=== PATIENT | female | born 1955 | race Caucasian/White ===

== ENCOUNTER 2017-08-28 23:08 | Inpatient (IN) ==
[2017-08-28] MEDS ORDERED: Ipratropium/Albuterol Neb 3 ML IH ONE (23:11)
[2017-08-28] MEDS ORDERED: methylPREDNISolone 125 MG/2 ML VIAL IVP ONE (23:11)
--- NOTE | 2017-08-28 23:18 | Emergency Department Note ---
Disposition Clinical Impression: NSTEMI (non-ST elevated myocardial infarction), Leukocytosis Community acquired pneumonia Qualifiers: Laterality: unspecified laterality Qualified Code(s): J18.9 - Pneumonia, unspecified organism Proteinuria Qualifiers: Proteinuria type: unspecified Qualified Code(s): R80.9 - Proteinuria, unspecified Disposition: Admitted As Inpatient Condition: Fair Time of Disposition: 02:48 SOB HPI - General Stated Complaint: stemi Chris Time Seen by Provider: 08/28/17 23:11 Source: patient, EMS Mode of arrival: EMS Limitations: no limitations Nursing Notes Reviewed: Yes Vital Signs Reviewed: Yes - History of Present Illness Patient presents to the ED via EMS and was seen and evaluated immediately upon arrival for shortness of breath. Patient states that over the last 3 days. She has had gradually increasing dyspnea. She had subjective fever and chills, cough and congestion. She had some chest pain yesterday but none today. States that she just feels very rundown and tired. She denies any history of COPD, but does state that she continues to smoke. No history of stents or bypasses. She has had a stroke about 10 years ago that left her with some right lower extremity weakness but no new weakness. No history of DVT or PE. - Related Data Allergies Allergy/AdvReac Type Severity Reaction Status Date / Time No Known Allergies Allergy Verified 08/28/17 23:09 Review of Systems: As reviewed in the HPI. All other systems reviewed are negative or normal. Past Medical History - Past Medical History Attestation: Yes The following information was validated with the patient. Source: patient Physical Exam CONSTITUTIONAL: [well appearing in no acute distress] SKIN: [Warm, dry, and intact without rash] EYES: [extraocular movements are grossly intact, clear conjunctiva] HENT: [Normocephalic, atraumatic, moist mucus membranes] NECK: [no obvious swelling, normal range of motion] PULMONARY: [normal chest rise and fall, mild respiratory distress with moderate diffuse wheezing throughout CARDIOVASCULAR: [Tachycardic, distal extremities are warm and well perfused] GASTROINSTESTINAL: [nondistended, non-tender] GENITOURINARY: [deferred] NEUROLOGIC: [normal speech, moves all extremities] MUSCULOSKELETAL: [no gross deformities, atraumatic] PSYCHIATRIC: [normal mood and affect] Course Course Narrative: Patient presenting with shortness of breath and likely COPD exacerbation. She is wheezing throughout. Will give nebs. Patient did get aspirin prior to arrival. - Reevaluation(s) Reevaluation #1: Patient's EKG does not meet STEMI criteria, but is certainly concerning. Her story really is not fitting. Concern that this could be ACS. Due to her age, but also will need to consider PE due to her significant of shortness of breath. Her chest x-ray did show a possible lung nodule versus mass, so we will go ahead and CT her chest to rule out PE and further evaluate this. This could also be a potential pneumonia. Reevaluation #2: CTA did not show a PE. It did show concern over pneumonia. Her initial troponin was elevated, and we rechecked it 3 hours later and it has almost doubled. Do think that she most likely is having an NSTEMI , and we will start on heparin. We will also treat her for pneumonia. Patient will be admitted to the hospital. - Consultations Consultation #1: Patient admitted to hospital service under Dr. Almanzar and he was agreeable with heparin gtt. Time: 02:46 Vital Signs Temperature 97.1 F L 08/28/17 23:09 Pulse Rate 120 08/28/17 23:09 Respiratory Rate 20 08/28/17 23:09 Blood Pressure 114/93 08/28/17 23:09 O2 Sat by Pulse Oximetry 96 08/28/17 23:09 Temperature 97.1 F L 08/28/17 23:09 Pulse Rate 110 08/29/17 03:34 Respiratory Rate 20 08/29/17 03:34 Blood Pressure 154/87 08/29/17 03:34 O2 Sat by Pulse Oximetry 93 08/29/17 03:34 Oxygen Delivery Oxygen Delivery Nasal Cannula Shortness of Breath/Dyspnea - Medical Records Medical records reviewed: Yes I reviewed the patient's medical records. - Lab Data Lab results reviewed: Yes I reviewed the patient's lab results. Result diagrams: 08/28/17 23:19 08/28/17 23:19 Lab Results 08/28/17 08/28/17 08/28/17 Range/Units 23:19 23:19 23:19 WBC 14.9 H (4.3-11.1) K/mcL RBC 4.87 (3.82-4.97) M/mcL Hgb 15.2 (11.5-15.4) g/dL Hct 44.9 (35.3-44.9) % MCV 92.2 (83.0-100.0) fL MCH 31.2 (28.0-33.3) pg MCHC 33.9 (31.6-35.5) g/dL RDW 12.9 (11.5-14.5) % Plt Count 242 (140-400) K/mcL MPV 10.4 (9.4-12.4) fL Immature Gran % 0.3 (0-4) % Seg Neutrophils % 78.7 % Lymphocytes % 13.5 % Monocytes % 7.1 % Eosinophils % 0.1 % Basophils % 0.3 % Neutrophils # 11.7 H (1.6-8.9) K/mcL Lymphocytes # 2.0 (0.6-4.6) K/mcL Monocytes # 1.1 (0.0-1.3) K/mcL Eosinophils # 0.0 (0.0-0.6) K/mcL Basophils # 0.1 (0.0-0.2) K/mcL PT (9.4-12.1) Seconds INR APTT (26.0-36.0) Seconds Sodium 131 L (136-145) mEq/L Potassium 4.3 (3.5-5.1) mEq/L Chloride 98 (98-107) mEq/L Carbon Dioxide 22 L (23-29) mEq/L BUN 9 (8-23) mg/dL Creatinine 0.74 (0.60-1.20) mg/dL Est GFR ( Amer) > 60 (> 60) Est GFR (Non-Af Amer) > 60 (> 60) BUN/Creatinine Ratio 12 (6-26) Glucose 137 H (70-105) mg/dL Calculated Osmolality 273 L (280-300) Lactic Acid 1.1 (0.5-2.2) mmol/L Calcium 9.7 (8.6-10.3) mg/dL Troponin I 0.24 H* (< 0.04) ng/mL B-Natriuretic Peptide (Less than 100) pg/mL Urine Color (Yellow) Urine Clarity (Clear) Urine pH (5.0-8.0) pH Units Ur Specific [place] (1.010-1.025) Urine Protein (Neg-Trace) mg/dL Urine Glucose (UA) (Normal) mg/dL Urine Ketones (Negative) mg/dL Urine Blood (Negative) Urine Nitrite (Negative) Urine Bilirubin (Negative) Urine Urobilinogen (Normal) mg/dL Ur Leukocyte Esterase (Negative) Urine Microscopic RBC (0-3) per hpf Urine Microscopic WBC (0-3) per hpf Ur Squamous Epith Cells (None-Few) per lpf Urine Bacteria (None-Few) per hpf Hyaline Casts (None-Few) per lpf Ur Culture Indicated? (NO) 08/28/17 08/28/17 08/29/17 Range/Units 23:19 23:19 00:18 WBC (4.3-11.1) K/mcL RBC (3.82-4.97) M/mcL Hgb (11.5-15.4) g/dL Hct (35.3-44.9) % MCV (83.0-100.0) fL MCH (28.0-33.3) pg MCHC (31.6-35.5) g/dL RDW (11.5-14.5) % Plt Count (140-400) K/mcL MPV (9.4-12.4) fL Immature Gran % (0-4) % Seg Neutrophils % % Lymphocytes % % Monocytes % % Eosinophils % % Basophils % % Neutrophils # (1.6-8.9) K/mcL Lymphocytes # (0.6-4.6) K/mcL Monocytes # (0.0-1.3) K/mcL Eosinophils # (0.0-0.6) K/mcL Basophils # (0.0-0.2) K/mcL PT 11.4 (9.4-12.1) Seconds INR 1.1 APTT 33.8 (26.0-36.0) Seconds Sodium (136-145) mEq/L Potassium (3.5-5.1) mEq/L Chloride (98-107) mEq/L Carbon Dioxide (23-29) mEq/L BUN (8-23) mg/dL Creatinine (0.60-1.20) mg/dL Est GFR ( Amer) (> 60) Est GFR (Non-Af Amer) (> 60) BUN/Creatinine Ratio (6-26) Glucose (70-105) mg/dL Calculated Osmolality (280-300) Lactic Acid (0.5-2.2) mmol/L Calcium (8.6-10.3) mg/dL Troponin I (< 0.04) ng/mL B-Natriuretic Peptide 110 H (Less than 100) pg/mL Urine Color Dark Yellow (Yellow) Urine Clarity Clear (Clear) Urine pH 6.0 (5.0-8.0) pH Units Ur Specific [place] 1.024 (1.010-1.025) Urine Protein >=300 H (Neg-Trace) mg/dL Urine Glucose (UA) Normal (Normal) mg/dL Urine Ketones 80 H (Negative) mg/dL Urine Blood Negative (Negative) Urine Nitrite Negative (Negative) Urine Bilirubin Small H (Negative) Urine Urobilinogen Normal (Normal) mg/dL Ur Leukocyte Esterase Negative (Negative) Urine Microscopic RBC 5-15 H (0-3) per hpf Urine Microscopic WBC 3-5 H (0-3) per hpf Ur Squamous Epith Cells Many H (None-Few) per lpf Urine Bacteria None Seen (None-Few) per hpf Hyaline Casts None Seen (None-Few) per lpf Ur Culture Indicated? NO (NO) 08/29/17 Range/Units 02:04 WBC (4.3-11.1) K/mcL RBC (3.82-4.97) M/mcL Hgb (11.5-15.4) g/dL Hct (35.3-44.9) % MCV (83.0-100.0) fL MCH (28.0-33.3) pg MCHC (31.6-35.5) g/dL RDW (11.5-14.5) % Plt Count (140-400) K/mcL MPV (9.4-12.4) fL Immature Gran % (0-4) % Seg Neutrophils % % Lymphocytes % % Monocytes % % Eosinophils % % Basophils % % Neutrophils # (1.6-8.9) K/mcL Lymphocytes # (0.6-4.6) K/mcL Monocytes # (0.0-1.3) K/mcL Eosinophils # (0.0-0.6) K/mcL Basophils # (0.0-0.2) K/mcL PT (9.4-12.1) Seconds INR APTT (26.0-36.0) Seconds Sodium (136-145) mEq/L Potassium (3.5-5.1) mEq/L Chloride (98-107) mEq/L Carbon Dioxide (23-29) mEq/L BUN (8-23) mg/dL Creatinine (0.60-1.20) mg/dL Est GFR ( Amer) (> 60) Est GFR (Non-Af Amer) (> 60) BUN/Creatinine Ratio (6-26) Glucose (70-105) mg/dL Calculated Osmolality (280-300) Lactic Acid (0.5-2.2) mmol/L Calcium (8.6-10.3) mg/dL Troponin I 0.53 H* (< 0.04) ng/mL B-Natriuretic Peptide (Less than 100) pg/mL Urine Color (Yellow) Urine Clarity (Clear) Urine pH (5.0-8.0) pH Units Ur Specific [place] (1.010-1.025) Urine Protein (Neg-Trace) mg/dL Urine Glucose (UA) (Normal) mg/dL Urine Ketones (Negative) mg/dL Urine Blood (Negative) Urine Nitrite (Negative) Urine Bilirubin (Negative) Urine Urobilinogen (Normal) mg/dL Ur Leukocyte Esterase (Negative) Urine Microscopic RBC (0-3) per hpf Urine Microscopic WBC (0-3) per hpf Ur Squamous Epith Cells (None-Few) per lpf Urine Bacteria (None-Few) per hpf Hyaline Casts (None-Few) per lpf Ur Culture Indicated? (NO) - Radiology Data Radiology results reviewed: Yes I reviewed the patient's radiology results. - EKG Data EKG attestation: Yes I reviewed and interpreted this EKG. EKG results narrative: Sinus tach, rate 119, para 139, QRS 137, QTC 427, indeterminate axis, right bundle branch block with left posterior fascicular block. Is also some concern over right heart strain with large P waves Critical Care Time Critical Care Time: Yes Total Critical Care Time: 30 Attestation: I personally spent ___30___ minutes devoted to the care of this critically ill patient. This time excludes the time for billable procedures. Attestation Statement - Attestation Attestation: I examined this patient and my medical decision-making was reviewed with the Resident Physician. I agree with the documented findings, disposition and treatment plan as described except to the extent set forth below. 62-year-old female presents to ED by EMS because of different breathing. She has had increasing wheezing over the past 24 hours but precipitously worsened tonight. Denies any associated chest pain. No diaphoresis. No nausea or vomiting. No fever. Cough has been productive of thin yellow sputum. She denies diagnosis of COPD or emphysema but does use albuterol nebulizers at home. She is currently here visiting family from out of town. No history of coronary disease. Patient is tachypneic in mild respiratory distress. Oropharynx clear mucous membranes membranes moist. Neck is supple. Trachea midline. Chest with diffuse biphasic wheezes in all lung good. Diminished breath sounds throughout. Cardiac exam tachycardic, regular. Abdomen soft, nondistended and nontender. Extremities well perfused, warm and dry. Initial EKG shows intraventricular conduction delay as well as DE depression. There is convex changes in the ST segments but this appears to be isoelectric with the TP intervals. Initial troponin was elevated 0.24. She underwent CT of her chest which was negative for any acute process. Repeat troponin was elevated to 0.5. She was started on heparin and admitted for further evaluation. Breathing improved after sequential DuoNeb treatments. The high probability of a clinically significant, sudden or life threatening deterioration of the [cardiopulmonary] system(s) required my full and direct attention, intervention and personal management. The aggregate critical care time was [35] minutes. This time is in addition to time spent performing reported procedures but includes the following: [x] Data Review and interpretation [x] Patient assessment and monitoring of vital signs [x] Documentation [x] Medication orders and management
[2017-08-28 23:54] LABS: Basophils # 0.1 K/mcL (0.0-0.2); Basophils % 0.3 %; Eosinophils % 0.1 %; Hematocrit 44.9 % (35.3-44.9); Hemoglobin 15.2 g/dL (11.5-15.4); Immature Granulocytes % 0.3 % (0-4); Lymphocytes % 13.5 %; Mean Corpuscular HGB Conc 33.9 g/dL (31.6-35.5); Mean Corpuscular Hemoglobin 31.2 pg (28.0-33.3); Mean Corpuscular Volume 92.2 fL (83.0-100.0); Mean Platelet Volume 10.4 fL (9.4-12.4); Monocytes # 1.1 K/mcL (0.0-1.3); Monocytes % 7.1 %; Neutrophils # 11.7 K/mcL (1.6-8.9); Platelet Count 242 K/mcL (140-400); Red Blood Count 4.87 M/mcL (3.82-4.97); Red Cell Distribution Width 12.9 % (11.5-14.5); Segmented Neutrophils % 78.7 %
[2017-08-29 00:14] LABS: INR 1.1; Prothrombin Time 11.4 Seconds (9.4-12.1)
[2017-08-29 00:17] LABS: Activated Partial Thrombo Time 33.8 Seconds (26.0-36.0)
[2017-08-29 00:30] LABS: BUN/Creatinine Ratio 12 (6-26); Blood Urea Nitrogen 9 mg/dL (8-23); Calcium 9.7 mg/dL (8.6-10.3); Carbon Dioxide 22 mEq/L (23-29); Chloride 98 mEq/L (98-107); Glucose 137 mg/dL (70-105); Osmolality,Calculated 273 (280-300); Potassium 4.3 mEq/L (3.5-5.1); Sodium 131 mEq/L (136-145); Troponin I 0.24 ng/mL (< 0.04); eGFR For African Americans > 60 (> 60); eGFR For Non-African Americans > 60 (> 60)
[2017-08-29 00:31] LABS: Bilirubin,Urine Small (Negative); Blood,Urine Negative (Negative); Clarity,Urine Clear (Clear); Color,Urine Dark Yellow (Yellow); Glucose,Urine (UA) Normal (Normal); Ketones,Urine 80 mg/dL (Negative); Leukocyte Esterase,Urine Negative (Negative); Nitrite,Urine Negative (Negative); Protein,Urine >=300 mg/dL (Neg-Trace); Specific Gravity,Urine 1.024 (1.010-1.025); Urobilinogen,Urine Normal (Normal)
[2017-08-29 00:34] LABS: Bacteria,Urine None Seen per hpf (None-Few); Hyaline Casts,Urine None Seen per lpf (None-Few); Squamous Epithelial Cell,Urine Many per lpf (None-Few)
[2017-08-29] MEDS ORDERED: Aspirin 325 MG TABLET PO ONE (00:36)
[2017-08-29] MEDS ORDERED: Isovue-370 500 ML INFUS..BTL IV ONE (00:49)
[2017-08-29] MEDS ORDERED: Azithromycin 500 MG in D5% in Water 250 ML IVPB ONE (02:22)
[2017-08-29] MEDS ORDERED: cefTRIAXone 1,000 MG in Water for inj. (sterile) 20 ML 10 ML IVPB ONE (02:22)
[2017-08-29] MEDS ORDERED: *HR* Heparin 5,000 UNIT/ML VIAL IVP ONE (02:41)
[2017-08-29] MEDS ORDERED: Naloxone 0.4 MG/ML INJ IVP PRN (02:50)
--- NOTE | 2017-08-29 03:11 | Internal Med History&Physical ---
Date of Encounter: 08/29/17 Time of Encounter: 03:00 Internal Medicine - H&P: HPI Chief complaint: Shortness of breath Admitted From: Emergency Dept Plans for Post Hospital Care: Home History of present illness: Ms. Marshall is a 62 year old female patient with past medical history of fibromyalgia and CVA who presented to the ER with complaints of shortness of breath. Has been going on for 2-3 days now. She is also been having cough with sputum production. No hemoptysis. No chest pain. No fever but she has been having episodes of feeling hot and cold intermittently. She reports having about of pneumonia a few years back. She is a chronic smoker. Has not been previously diagnosed with COPD. No prior history of cardiac disease. No palpitations. Past Med Surg Social Fam HX - Past Medical History Attestation: Yes The following information was validated with the patient. Source: patient Medical history: CVA, fibromyalgia Additional medical history: CVA 2007 RLE weakness Psychiatric history: depression - Past Surgical History Additional surgical history: neuro stim in and out - Social History Smoking Status: Current every day smoker Smokeless Tobacco Status: No Alcohol use: none Drug use: none - Additional Family History Additional family history: Family history of heart disease in multiple family members Internal Medicine - H&P: Meds 3 Allergy/AdvReac Type Severity Reaction Status Date / Time No Known Allergies Allergy Verified 08/28/17 23:09 All Systems PM: A 10-system review of systems was performed and is negative for pertinent findings except as documented above in the HPI. - Constitutional Constitutional: chills, malaise, no fever(s), no night sweats - EENT Eyes: no change in vision, no discharge, no pain, no photophobia Ears: no ear discharge, no ear pain, no tinnitus Nose, mouth and throat: no dysphagia, no nasal discharge, no neck pain, no sore throat - Cardiovascular Cardiovascular ROS IM: no chest pain, no diaphoresis, no dyspnea, no lightheadedness, no palpitations, no syncope - Respiratory Respiratory: cough, dyspnea, excessive phlegm production, no wheezing - Gastrointestinal Gastrointestinal: no abdominal pain, no diarrhea, no hematemesis, no hematochezia, no melena, no nausea, no vomiting - Genitourinary Genitourinary: no change in urinary stream, no dysuria, no flank pain, no hematuria - Musculoskeletal Musculoskeletal ROS IM: no numbness, no tingling - Integumentary Integumentary IM: no rash, no unusual bruising - Neurological Neurological ROS: no confusion, no convulsions, no focal weakness, no numbness, no tingling, no tremor(s) - Hematologic/Lymphatic Hematologic/Lymphatic: no easy bruising - Constitutional Vitals: Temp Pulse Resp BP Pulse Ox 97.1 F L 105 24 135/77 95 08/28/17 23:09 08/29/17 03:00 08/29/17 03:00 08/29/17 03:00 08/29/17 03:00 General appearance: Present: cooperative, A&O X 3, answers questions appropriately - Respiratory Respiratory exam: Present: prolonged expiratory phase, wheezes. Absent: accessory muscle use, rales, rhonchi - Cardiovascular Cardiovascular exam: Present: RRR, +S1, +S2. Absent: diastolic murmur, gallop, rubs, systolic murmur - GI/Abdominal GI/Abdominal exam: Present: normal bowel sounds, soft, no peritoneal signs. Absent: distended, tenderness - Extremities Exam Extremities exam: Present: warm, radial pulses palpable and symmetrical. Absent : calf tenderness, cyanotic, pedal edema - Neurological Exam Neurological exam: Present: CN II-XII intact, oriented X3, no focal deficits. Absent: pronater drift, facial droop, speech deficit - Skin Skin exam: Present: dry, intact Internal Med - H&P Results - Labs CBC & Chem 7: 08/28/17 23:19 08/28/17 23:19 Labs: Short CBC 08/28/17 Range/Units 23:19 WBC 14.9 H (4.3-11.1) K/mcL Hgb 15.2 (11.5-15.4) g/dL Hct 44.9 (35.3-44.9) % Plt Count 242 (140-400) K/mcL Neutrophils # 11.7 H (1.6-8.9) K/mcL BMP 08/28/17 23:19 Sodium 131 L Potassium 4.3 Chloride 98 Carbon Dioxide 22 L BUN 9 Creatinine 0.74 Glucose 137 H Calcium 9.7 Cardiac Enzymes 08/28/17 08/29/17 Range/Units 23:19 02:04 Troponin I 0.24 H* 0.53 H* (< 0.04) ng/mL Urine 08/29/17 Range/Units 00:18 Urine Color Dark Yellow (Yellow) Urine Clarity Clear (Clear) Urine pH 6.0 (5.0-8.0) pH Units Ur Specific [place] 1.024 (1.010-1.025) Urine Protein >=300 H (Neg-Trace) mg/dL Urine Glucose (UA) Normal (Normal) mg/dL - EKG Data EKG shows normal: sinus rhythm Rate: tachycardia - EKG Data EKG comments: 08/29/17 03:15 Right bundle-branch block - Impressions ITS Impressions Chest X-Ray 08/28/17 23:11 IMPRESSION: Increased density in the right lung apex which may be related to confluence of shadows. Comparison with prior radiographs would be helpful to confirm stability. Otherwise, CT of the chest could be performed to exclude underlying mass. D/ / Angélica Simon Cha, MD / Angélica Simon Cha, MD Interpreting Provider: Angélica Simon Cha, MD Chest CTA 08/29/17 00:49 IMPRESSION: No CT evidence pulmonary embolism. Bronchial wall thickening as well as scattered bilateral focal areas ill defined airspace opacification most compatible with infectious airways disease. 3 mm juxtapleural left upper lobe noncalcified nodule, likely postinflammatory. See below. Moderate to severe emphysema. Right apical scarring accounting for the chest radiographic abnormality. RECOMMENDATIONS: Fleischner Society guidelines for follow-up and management of incidentally detected pulmonary nodules: Single Solid Nodule: Nodule size less than 6 mm In a low-risk patient, no routine follow-up. In a high-risk patient, optional CT at 12 months. - Low risk patients include individuals with minimal or absent history of smoking and other known risk factors. - High risk patients include individuals with a history or smoking or known risk factors. Radiology 2017 http://pubs.[facility]na.org/doi/full/[email or web address] D/ / Angélica Simon Cha, MD / Angélica Simon Cha, MD Interpreting Provider: Angélica Simon Cha, MD - Assessment and plan (1) Sepsis Current Visit: Yes Status: Suspected Assessment and plan: Patient presenting with elevated WBC count and tachycardia with pneumonia. Will treat with IV antibiotics. Lactic acid is normal. Blood pressure is normal. IV fluids. Monitor vital signs. Follow blood and sputum cultures. High risk for complications Qualifiers: Sepsis type: Pneumococcus Qualified Code(s): A40.3 - Sepsis due to Streptococcus pneumoniae (2) NSTEMI (non-ST elevated myocardial infarction) Current Visit: Yes Status: Suspected Assessment and plan: Patient having elevated troponins. Although she does not have chest pain, she does have shortness of breath. We will start treatment with IV heparin for possible non-ST elevation [facility]. Consult cardiology in a.m. Monitor with telemetry. We will get 2-D echocardiogram. Keep nothing by mouth in case patient needs left heart catheterization. (3) Community acquired pneumonia Current Visit: Yes Status: Acute Assessment and plan: Bilateral airspace opacification noted on CT. Patient does have elevated WBC and increased sputum production. Will treat with pneumonia possibly due to pneumococcal pneumonia. Will treat with IV Levaquin. Follow blood and sputum cultures. Check urine streptococcus and Legionella antigens. O2 supplementation. Qualifiers: Laterality: unspecified laterality Qualified Code(s): J18.9 - Pneumonia, unspecified organism (4) Wheezing Current Visit: Yes Status: Acute Assessment and plan: Patient currently having wheezing. No previous diagnosis of COPD. Will treat patient with bronchodilators symptomatically. (5) Tobacco abuse Current Visit: Yes Status: Chronic - Time Spent With Patient Total time spent is greater than 50% in coordination of care (as documented) at patient's floor/unit and/or counseling patient:
[2017-08-29] MEDS: Ipratropium/Albuterol Neb 3 ML IH SCH ×5 (04:29→19:56)
[2017-08-29] MEDS: Levofloxacin 750 MG/150 ML 750 MG/150 ML BAG IVPB SCH (05:31)
[2017-08-29] MEDS: Heparin 25,000 UNIT/500 ML D5W 25,000 UNIT/500 ML BAG IVC SCH (05:33)
--- NOTE | 2017-08-29 10:13 | Cardiology Consult Note ---
Date of Encounter: 08/29/17 Time of Encounter: 09:00 Assessment and Plan (1) Community acquired pneumonia Current Visit: Yes Status: Acute Per cardiology: -Admitted with increased shortness of breath. -Diagnosis with pneumonia. -On IV ATB. -Sputum positive for strep pneumonia. -Management per primary service. Qualifiers: Laterality: unspecified laterality Qualified Code(s): J18.9 - Pneumonia, unspecified organism (2) Elevated troponin Current Visit: Yes Status: Acute Per cardiology: -Troponins 0.24, 0.53 in the setting of pneumonia, sepsis. -Denies chest pain. -ECG abnormal, unknown baseline. -TTE pending. -On heparin drip. -BB marginal 100s systolic. -Will start asa, statin. Consider addition of BB, if BP will tolerate. -Continue heparin drip. -Continue to trend troponins. -Further recommendations pending TTE and troponin trend. (3) Tobacco abuse Current Visit: Yes Status: Chronic Per cardiology: -States smoking 1pack per day since she was 13. -Smoking cessation education provided. Discussion w patient/family: The assessment and plan as outlined above was discussed with the patient who expressed understanding and agreement. All questions were answered. Thank you for involving us in the care of your patient. Please call with any questions. Discussed and reviewed with . History of Present Illness Consult date: 08/29/17 Requesting physician: Davey Almanzar Consult reason: elevated troponin Chief complaint: shortness of breath History of present illness: Ms. Marshall is a 62 year old female with a relevant past medical history of CVA, smoking, possible family history of CAD. Patient lives in [place] and is here in [place] visiting family members. Patient states she noticed cold like symptoms starting on Saturday. Patient states symptoms and shortness of breath continued to worsen and she presented to [facility]. Patient denies chest pain. Reports shortness of breath. States had an ECG 10 years ago at her PCP, otherwise denies previous cardiac testing. Past Med Surg Social Fam HX - Past Medical History Attestation: Yes The following information was validated with the patient. Source: patient, old records reviewed Medical history: CVA, fibromyalgia Additional medical history: CVA 2007 RLE weakness Psychiatric history: depression - Past Surgical History Additional surgical history: neuro stim in and out - Social History Smoking Status: Current every day smoker Smokeless Tobacco Status: No Alcohol use: none Drug use: none - Family History Mother Living Status: Age at : 61 Cause of : cancer Hx Family Cardiac Disorders: No Hx Family Respiratory Disorders: No Hx Family Cancer: Yes (lung) Hx Family GI Disorders: No Hx Family Genitourinary Disorders: No Hx Family Endocrine Disorder: No Hx Family Musculoskeletal Disorders: No Hx Family Neuromuscular Disorders: No Hx Family Neurologic Disorders: No Hx Family HEENT Disorders: No Hx Family Autoimmune Disorders: No Hx Family Reproductive Disorders: No Hx Family Psychosocial Disorders: No Hx Family Medical Disorders: No Father Living Status: Cause of : unknown Hx Family Cardiac Disorders: Yes (mi) Hx Family Respiratory Disorders: No Hx Family Cancer: No Hx Family GI Disorders: No Hx Family Genitourinary Disorders: No Hx Family Endocrine Disorder: No Hx Family Musculoskeletal Disorders: No Hx Family Neuromuscular Disorders: No Hx Family Neurologic Disorders: No Hx Family HEENT Disorders: No Hx Family Autoimmune Disorders: No Hx Family Reproductive Disorders: No Hx Family Psychosocial Disorders: No Hx Family Medical Disorders: No Medications and Allergies Aspirin Enteric Coated [Aspirin EC] 81 mg PO DAILY 08/29/17 [History] Celecoxib [Celebrex] 200 mg PO DAILY 08/29/17 [History] FLUoxetine HCl [Prozac] 80 mg PO DAILY 08/29/17 [History] Levothyroxine Sodium 100 mcg PO DAILY 08/29/17 [History] Multivitamin [One Daily Essential] 1 tab PO DAILY 08/29/17 [History] Omeprazole [PriLOSEC] 20 mg PO DAILY 08/29/17 [History] Pregabalin [Lyrica] 150 mg PO BID 08/29/17 [History] 3 Allergy/AdvReac Type Severity Reaction Status Date / Time No Known Allergies Allergy Verified 08/29/17 08:53 All Systems Review: The remainder of the systems were reviewed and are negative - Constitutional Constitutional: chills - Cardiovascular Cardiovascular: as per HPI, dyspnea at rest, dyspnea on exertion Physical Examination Vital Signs, Last 4 Hours Temp Pulse Resp BP Pulse Ox 08/29/17 08:00 97.7 F 108 18 109/71 95 General: Conversant, No Apparent Distress HEENT: Atraumatic, Normocephaly, Mucus Membranes Moist Neck: No JVD, Normal carotid pulses Cardiac: Reg Rate and Rhythm, Normal S1 and S2, No Murmur Lungs: Other (RLL lung sound diminished. All other lung good with inspiratory wheezes. Productive cough noted. ) Neuro: Alert and responsive, No focal deficits noted Abdomen: Soft, Non-Tender Skin: No rashes noted on visualized skin Musculoskeletal: No Chest Wall Tenderness Extremities: No Clubbing, No Cyanosis, No Edema, Normal Pulses Results 08/28/17 23:19 08/28/17 23:19 Impressions Chest X-Ray 08/28/17 23:11 IMPRESSION: Increased density in the right lung apex which may be related to confluence of shadows. Comparison with prior radiographs would be helpful to confirm stability. Otherwise, CT of the chest could be performed to exclude underlying mass. D/ / Angélica Simon Cha, MD / Angélica Simon Cha, MD Interpreting Provider: Angélica Simon Cha, MD Chest CTA 08/29/17 00:49 IMPRESSION: No CT evidence pulmonary embolism. Bronchial wall thickening as well as scattered bilateral focal areas ill defined airspace opacification most compatible with infectious airways disease. 3 mm juxtapleural left upper lobe noncalcified nodule, likely postinflammatory. See below. Moderate to severe emphysema. Right apical scarring accounting for the chest radiographic abnormality. RECOMMENDATIONS: Fleischner Society guidelines for follow-up and management of incidentally detected pulmonary nodules: Single Solid Nodule: Nodule size less than 6 mm In a low-risk patient, no routine follow-up. In a high-risk patient, optional CT at 12 months. - Low risk patients include individuals with minimal or absent history of smoking and other known risk factors. - High risk patients include individuals with a history or smoking or known risk factors. Radiology 2017 http://pubs.rsna.org/doi/full/10.1148/radiol.[email or web address] D/ / Angélica Simon Cha, MD / Angélica Simon Cha, MD Interpreting Provider: Angélica Simon Cha, MD Active Medications Albuterol/Ipratropium (Duoneb) 3 ml IH [id number] BRITNEY PRN Reason: Protocol Stop: 02/28/18 04:01 Last Admin: 08/29/17 07:45 Dose: 3 ml Heparin Sodium (Porcine) (Heparin Lock) 500 unit IV ONCE PRN PRN Reason: Port Flush while in RADIOLOGY Stop: 08/31/17 00:50 Heparin Sodium/Dextrose (Heparin 25,000 Unit/500 Ml D5w) 25,000 unit in 500 mls @ 15.785 mls/hr IVC .Q24H BRITNEY; 12 UNIT/KG/HR PRN Reason: Protocol Stop: 02/28/18 02:46 Last Admin: 08/29/17 05:33 Dose: 12 unit/kg/hr, 15.785 mls/hr Levofloxacin/Dextrose (Levaquin Premix 750mg/150 Ml) 750 mg in 150 mls @ 100 mls/hr IVPB Q24H BRITNEY PRN Reason: Protocol Stop: 02/28/18 03:01 Last Admin: 08/29/17 05:31 Dose: 100 mls/hr Naloxone HCl (Narcan) 0.4 mg IVP Q2MIN PRN PRN Reason: SEE COMMENTS Stop: 02/28/18 02:51 Laboratory Tests 08/28/17 08/28/17 08/29/17 23:19 23:19 02:04 WBC 14.9 H Hgb 15.2 Creatinine 0.74 Troponin I 0.24 H* 0.53 H* - Imaging and Cardiology Chest Xray: report reviewed Echo: pending - EKG Interpretation EKG results cardiology: personally reviewed (ECG with ST, HR 119. RBBB.), other (Telemetry reviewed with average HR previous 12 hours noted to be 106, ST. PVCs and PACs noted.) Consult Discharge Plan - Plan Referrals: NONE,PCP [Primary Care Provider] -
[2017-08-29] MEDS: FLUoxetine 20 MG CAPSULE PO SCH (14:39)
--- NOTE | 2017-08-29 16:34 | Internal Med Progress Note ---
Date of Encounter: 08/29/17 Time of Encounter: 16:31 - Assessment and plan (1) NSTEMI (non-ST elevated myocardial infarction) Current Visit: Yes Status: Suspected Assessment and plan: troponin peaked at 0.85; denied chest pain but with shortness of breath as noted below. EKG with RBBB. Continue heparin gtt, ASA, statin. Add BB if BP will allow (BP soft/borderline at this time). Cont to cycle troponin. Check TTE. Cardiology following, further recommendations pending her in trend and echocardiogram. (2) Streptococcus pneumoniae pneumonia Current Visit: Yes Status: Acute Assessment and plan: Bilateral airspace opacification noted on CT. sputum culture positive for strep pneumonia. Cont IV levaquin Qualifiers: Laterality: bilateral Lung location: unspecified part of lung Qualified Code(s): J13 - Pneumonia due to Streptococcus pneumoniae (3) COPD (chronic obstructive pulmonary disease) Current Visit: Yes Status: Acute Assessment and plan: Suspected with long history of tobacco use. Suspect acute exacerbation with wheezing and shortness of breath. Continue IV Levaquin, bronchodilators and steroids. Qualifiers: COPD type: COPD with acute exacerbation Qualified Code(s): J44.1 - Chronic obstructive pulmonary disease with (acute) exacerbation (4) Tobacco abuse Current Visit: Yes Status: Chronic Assessment and plan: current smoker. Cessation advised (5) Sepsis Current Visit: Yes Status: Suspected Assessment and plan: Patient presenting with elevated WBC count and tachycardia with pneumonia. Will treat with IV antibiotics. Lactic acid is normal. Blood pressure is normal. IV fluids. Monitor vital signs. Follow blood and sputum cultures. High risk for complications Qualifiers: Sepsis type: Pneumococcus Qualified Code(s): A40.3 - Sepsis due to Streptococcus pneumoniae (6) DVT prophylaxis Current Visit: Yes Status: Acute - Time Spent With Patient Total time spent is greater than 50% in coordination of care (as documented) at patient's floor/unit and/or counseling patient: - Subjective Interval history: Seen and examined at bedside. Patient is new to me. Information obtained from chart review and patient report. Still with shortness of breath and productive cough but overall improved. Denies chest pain. - Constitutional Vitals: Temp Pulse Resp BP Pulse Ox 98.2 F 92 16 110/66 93 08/29/17 15:47 08/29/17 15:47 08/29/17 15:47 08/29/17 15:47 08/29/17 15:47 General appearance: Present: cooperative, A&O X 3, answers questions appropriately - Head Head exam: Present: atraumatic, normocephalic - Eye Eye exam: Present: PERRL, conjuntiva pink, sclera anicteric Pupils: Present: PERRL - Neck Neck exam general surgery: Present: supple, trachea midline. Absent: lymphadenopathy - Respiratory Respiratory exam: Present: rhonchi, wheezes. Absent: accessory muscle use, rales - Cardiovascular Cardiovascular exam: Present: RRR, +S1, +S2. Absent: diastolic murmur, gallop, rubs, systolic murmur - GI/Abdominal GI/Abdominal exam: Present: normal bowel sounds, soft, no peritoneal signs. Absent: distended, tenderness - Extremities Exam Extremities exam: Present: warm, radial pulses palpable and symmetrical. Absent : calf tenderness, cyanotic, pedal edema - Neurological Exam Neurological exam: Present: CN II-XII intact, oriented X3, no focal deficits. Absent: pronater drift, facial droop, speech deficit - Skin Skin exam: Present: dry, intact Internal Medicine: Result - Labs CBC & Chem 7: 08/28/17 23:19 08/28/17 23:19 Labs: Cardiac Enzymes 08/29/17 Range/Units 10:55 Troponin I 0.85 H* (< 0.04) ng/mL - ABG Interpretation ABG results: PT/INR, D-dimer PT 11.4 Seconds (9.4-12.1) 08/28/17 23:19 Consult Discharge Plan - Plan Referrals: NONE,PCP [Primary Care Provider] -
[2017-08-29 17:47] LABS: Adenovirus Not Detected (Not Detect); Bordetella Pertussis Not Detected (Not Detect); Chlamydophila pneumoniae Not Detected (Not Detect); Coronavirus 229E Not Detected (Not Detect); Coronavirus HKU1 Not Detected (Not Detect); Coronavirus NL63 Not Detected (Not Detect); Coronavirus OC43 Not Detected (Not Detect); Human Metapneumovirus Not Detected (Not Detect); Human Rhinovirus/Enterovirus Not Detected (Not Detect); Influenza A Subtype 2009 H1 Not Detected (Not Detect); Influenza A Untypeable Not Detected (Not Detect); Influenza B Not Detected (Not Detect); Mycoplasma pneumoniae Not Detected (Not Detect); Parainfluenza Virus 1 Not Detected (Not Detect); Parainfluenza Virus 2 Not Detected (Not Detect); Parainfluenza Virus 3 Not Detected (Not Detect); Parainfluenza Virus 4 Not Detected (Not Detect); Respiratory Syncytial Virus Not Detected (Not Detect)
[2017-08-29] MEDS: Acetaminophen 325 MG TABLET PO PRN (20:13)
[2017-08-29] MEDS: Pregabalin 75 MG CAPSULE PO SCH (20:13)
[2017-08-29] MEDS ORDERED: Perflutren Lipid Microsphere 1.3 ML in 0.9 % Sodium Chloride 8.7 ML IVP ONE (22:06)
[2017-08-29] MEDS: traZODone 50 MG TABLET PO SCH (22:54)
[2017-08-30 00:57] LABS: Hematocrit 39.5 % (35.3-44.9); Mean Corpuscular HGB Conc 33.9 g/dL (31.6-35.5); Mean Corpuscular Hemoglobin 30.5 pg (28.0-33.3); Mean Corpuscular Volume 89.8 fL (83.0-100.0); Platelet Count 197 K/mcL (140-400)
[2017-08-30] MEDS: Ipratropium/Albuterol Neb 3 ML IH SCH ×8 (01:05→23:35)
[2017-08-30 01:12] LABS: Hemoglobin 13.4 g/dL (11.5-15.4)
[2017-08-30 01:20] LABS: BUN/Creatinine Ratio 23 (6-26); Blood Urea Nitrogen 15 mg/dL (8-23); Calcium 9.2 mg/dL (8.6-10.3); Carbon Dioxide 25 mEq/L (23-29); Chloride 98 mEq/L (98-107); Glucose 120 mg/dL (70-105); Osmolality,Calculated 278 (280-300); Potassium 3.1 mEq/L (3.5-5.1); Sodium 133 mEq/L (136-145); eGFR For African Americans > 60 (> 60); eGFR For Non-African Americans > 60 (> 60)
[2017-08-30] MEDS ORDERED: *HR* Heparin 5,000 UNIT/ML VIAL IVP PRN ×2 (01:34)
[2017-08-30] MEDS: Levofloxacin 750 MG/150 ML 750 MG/150 ML BAG IVPB SCH (02:22)
[2017-08-30] MEDS: Aspirin Enteric Coated 81 MG Tablet PO SCH (08:58)
[2017-08-30] MEDS: FLUoxetine 20 MG CAPSULE PO SCH (08:58)
[2017-08-30] MEDS: Pregabalin 75 MG CAPSULE PO SCH ×2 (08:58→21:36)
[2017-08-30] MEDS ORDERED: *HR* OxyCODONE Immed Rel 5 MG TABLET PO ONE (09:16)
--- NOTE | 2017-08-30 10:33 | Event Note ---
Date of Encounter: 08/30/17 Time of Encounter: 10:30 - Cardiology Event Note Troponin peaked at 0.85. TTE with LVEF 30-35%, segmental LV systolic dysfunction. Discussed and reviewed with , Recommmend [facility]. Risks versus benefits of LHC explained to patient. Patient states understanding and agreeable to proceed. Able to tolerate laying flat. K 3.1, potassium rider given. Of note, hemoglobin 08/28/17 15.2, today 13.4, discussed with , thought to be dillutional, ok to proceed with LHC. Further recommendations pending [facility].
[2017-08-30] MEDS ORDERED: Heparin 1,000 UNITS/500 mL 500 ML ONE (13:03)
[2017-08-30] MEDS ORDERED: Nitroglycerin 1,000 MCG/10 ML VIAL IV ONE (13:03)
[2017-08-30] MEDS ORDERED: 0.9 % Sodium Chloride 1,000 ML ONE ×2 (13:03→14:30)
[2017-08-30] MEDS ORDERED: ISOVUE-370 200 ML INFUS..BTL IV ONE (13:03)
[2017-08-30] MEDS ORDERED: *HR* Heparin 10,000 UNIT/10 ML VIAL ONE (13:03)
--- NOTE | 2017-08-30 13:39 | Pre-Sedation Evaluation ---
Pre-sedation evaluation - Pre-sedation checklist Date of procedure: 08/30/17 Procedure: Heart cath Recent Vitals: Last Vital Signs Temp 98.0 F 08/30/17 11:29 Pulse 89 08/30/17 11:29 Resp 18 08/30/17 11:29 BP 92/62 08/30/17 11:29 Pulse Ox 95 08/30/17 11:29 H&P (including ROS) documented in medical record: Yes Previous reaction to sedatives/anesthetics: Yes; explain in comment Dietary Status: No solid food in preceding 4 hrs and no liquid in preceding 2 hrs Dentition: No loose teeth or bridges ASA Classification *see protocol: CLASS II-Mild systemic disease
[2017-08-30] MEDS: Heparin 25,000 UNIT/500 ML D5W 25,000 UNIT/500 ML BAG IVC SCH (13:42)
[2017-08-30] MEDS: Acetaminophen 325 MG TABLET PO PRN (13:46)
--- NOTE | 2017-08-30 14:22 | Internal Med Progress Note ---
Date of Encounter: 08/30/17 Time of Encounter: 14:19 - Assessment and plan (1) NSTEMI (non-ST elevated myocardial infarction) Current Visit: Yes Status: Suspected Assessment and plan: troponin peaked at 0.85 and trended down; denied chest pain but with shortness of breath as noted below. EKG with RBBB. Continue heparin gtt, ASA, statin. Add BB if BP will allow (BP soft/borderline at this time). TTE with LVEF 30-35% , segmental LV systolic dysfunction. Evaluated by Cardiology who is planning [facility]. Further recommendations pending [facility]. Cont heparin gtt. Cont ASA, statin (2) Streptococcus pneumoniae pneumonia Current Visit: Yes Status: Acute Assessment and plan: Bilateral airspace opacification noted on CT. Urinary antigen positive for strep pneumonia. Cont IV levaquin (day 2) Qualifiers: Laterality: bilateral Lung location: unspecified part of lung Qualified Code(s): J13 - Pneumonia due to Streptococcus pneumoniae (3) COPD (chronic obstructive pulmonary disease) Current Visit: Yes Status: Acute Assessment and plan: Suspected with long history of tobacco use. Suspect acute exacerbation with wheezing and shortness of breath. Continue IV Levaquin, bronchodilators and steroids. Qualifiers: COPD type: COPD with acute exacerbation Qualified Code(s): J44.1 - Chronic obstructive pulmonary disease with (acute) exacerbation (4) Tobacco abuse Current Visit: Yes Status: Chronic Assessment and plan: current smoker. Cessation advised (5) Sepsis Current Visit: Yes Status: Suspected Assessment and plan: with elevated WBC count, tachycardia and pneumonia. Cont IV antibiotics. Lactic acid is normal. Blood pressure is normal. IV fluids. Monitor vital signs. Hemodynamically stable; appears to be resolving Qualifiers: Sepsis type: Pneumococcus Qualified Code(s): A40.3 - Sepsis due to Streptococcus pneumoniae (6) Hypokalemia Current Visit: Yes Status: Acute Assessment and plan: monitor and replace PRN (7) DVT prophylaxis Current Visit: Yes Status: Acute Assessment and plan: heparin gtt - Time Spent With Patient Total time spent is greater than 50% in coordination of care (as documented) at patient's floor/unit and/or counseling patient: - Subjective Interval history: Seen and examined at bedside. Says she feels better overall. She is complaining of lower back pain which is chronic and she suspect secondary to hospital bed. Has a productive cough. Shortness of breath is better. Continues to deny chest pain - Constitutional Vitals: Temp Pulse Resp BP Pulse Ox 98.0 F 89 18 92/62 95 08/30/17 11:29 08/30/17 11:29 08/30/17 11:29 08/30/17 11:29 08/30/17 11:29 General appearance: Present: cooperative, A&O X 3, answers questions appropriately - Head Head exam: Present: atraumatic, normocephalic - Eye Eye exam: Present: PERRL, conjuntiva pink, sclera anicteric Pupils: Present: PERRL - Neck Neck exam general surgery: Present: supple, trachea midline. Absent: lymphadenopathy - Respiratory Respiratory exam: Present: rhonchi, wheezes. Absent: accessory muscle use, rales - Cardiovascular Cardiovascular exam: Present: RRR, +S1, +S2. Absent: diastolic murmur, gallop, rubs, systolic murmur - GI/Abdominal GI/Abdominal exam: Present: normal bowel sounds, soft, no peritoneal signs. Absent: distended, tenderness - Extremities Exam Extremities exam: Present: warm, radial pulses palpable and symmetrical. Absent : calf tenderness, cyanotic, pedal edema - Neurological Exam Neurological exam: Present: CN II-XII intact, oriented X3, no focal deficits. Absent: pronater drift, facial droop, speech deficit - Skin Skin exam: Present: dry, intact Internal Medicine: Result - Labs CBC & Chem 7: 08/30/17 00:36 08/30/17 00:36 Labs: Short CBC 08/30/17 Range/Units 00:36 WBC 11.2 H (4.3-11.1) K/mcL Hgb 13.4 D (11.5-15.4) g/dL Hct 39.5 (35.3-44.9) % Plt Count 197 (140-400) K/mcL BMP 08/30/17 00:36 Sodium 133 L Potassium 3.1 L Chloride 98 Carbon Dioxide 25 BUN 15 Creatinine 0.66 Glucose 120 H Calcium 9.2 Cardiac Enzymes 08/30/17 Range/Units 08:19 Troponin I 0.78 H* (< 0.04) ng/mL - ABG Interpretation ABG results: PT/INR, D-dimer PT 11.4 Seconds (9.4-12.1) 08/28/17 23:19 Consult Discharge Plan - Plan Referrals: NONE,PCP [Primary Care Provider] -
[2017-08-30] MEDS ORDERED: *HR* FentaNYL (PF) 100 MCG/2 ML VIAL ONE (14:36)
[2017-08-30] MEDS ORDERED: *HR* Midazolam HCl 2 MG/2 ML VIAL ONE (14:36)
[2017-08-30] MEDS ORDERED: Adenosine 90 MG/30 ML MLS IV ONE (14:39)
--- NOTE | 2017-08-30 15:43 | Invasive Diagnostic Lab Proc ---
Name: Odalys Marshall Date of Study: 08/30/2017 Date: 1955 Ht: 66.1in Medical Record#: [id number] Age: 62 Wt: 136.69lb Gender: Female BSA: 1.7 Order #: [id number] BMI: 21.97 Physicians Procedure Physician: Quintin Gurrola MD, [facility] Referring MD: Referring MD: Staff Name Position Time In Marciano Reyes RT (R) Scrub 02:39 PM Josette Oanh RT (R) Monitor 02:39 PM Belinda Dean RN Turpentiner 02:39 PM Indications Indication Non-Stemi Cardiomyopathy Procedures Performed Procedure L HRT ARTERY/VENTRICLE ANGIO IV Doppler BLD Flow 1st Vessel Pre-Procedure Checklist Informed consent is complete signed and on chart. H&P is on chart. ID band is on and ID verified with patient. Patient NPO for procedure The procedure was described for the patient and questions were answered. Blood Pressure: 92/62 ECG is on chart. Plan of Care Patient will tolerate the procedure without complications. Adequate level of comfort will be maintained. Hemodynamics will remain stable Patient will recover from procedure without complications. Respiratory function will be maintained. Cardiac rhythm will remain stable. Patient temperature will be maintained. Patient and/or family have verbalized understanding of the procedure. Patient Education Chief Complaint/Reason for Test: Cardiac Cath Developmental Category: Adult (18-64 years) Developmentally Appropriate for Age: Yes Learning Barriers: None Education Needs: Procedure Education Method: Verbal Information Taught: Cardiac Cath Educational Evaluation: Able to repeat information Intravenous Access Time IV Size Location DC'd Fluid/Drip Rate Units RN 01:23 PM 20g 1 1/4" Patent On Arrival Rt Arm 20g 1 1/4" Patent On Arrival Rt Antecubital Allergies No Known Allergies Vital Signs Time BP (mmHg) HR (bpm) O2 Sat. RR (bpm) LOC 01:23 PM 92 / 62 89 9 % 18 5 = Fully awake and oriented or at pre-proc level 02:41 PM / % 5 = Fully awake and oriented or at pre-proc level 02:41 PM / % 4 = Oriented but drowsy 02:57 PM / % 4 = Oriented but drowsy 03:12 PM / % 4 = Oriented but drowsy 02:37 PM 122 / 66 81 97 % 18 02:41 PM 105 / 66 93 96 % 22 02:46 PM 85 / 54 75 97 % 9 02:47 PM 90 / 55 79 97 % 16 02:51 PM 84 / 59 81 96 % 15 02:56 PM 81 / 53 82 96 % 18 03:01 PM 70 / 50 83 97 % 16 03:06 PM 83 / 57 80 97 % 17 03:11 PM 82 / 56 79 97 % 15 03:17 PM 98 / 56 88 98 % 19 03:21 PM 93 / 63 80 97 % 15 Procedural Medications Time Medication Dose Units Method Given By 02:40 PM Oxygen 2 L/min nasal cannula Belinda Dean RN 02:40 PM Versed 1 mg Intravenous Belinda Dean RN 02:40 PM Fentanyl 50 mcg Intravenous Belinda Dean RN 02:46 PM Versed 0.5 mg Intravenous Belinda Dean RN 02:46 PM Fentanyl 25 mcg Intravenous Belinda Dean RN 02:47 PM Lidocaine 2% 10 ml Subcutaneous Quintin Gurrola MD, FACC 03:15 PM Adenosine 520.8 ml/hr Intracoronary Quintin Gurrola MD, FACC 03:20 PM Heparin 2000 units Intravenous Belinda Dean RN ASA Classification: CLASS II- Mild systemic disease (i.e. well-controlled diabetes, hypertension, asthma, cigarette smoking) Hua Score Preprocedure Postprocedure Activity 2- Moves 4 extremities sustained head lift Activity 2- Moves 4 extremities sustained head lift Circulation 2- SBP +/= 20 points of pre-anesthetic level Circulation 2- SBP +/= 20 points of pre-anesthetic level Consciousness 2- Awake and alert oriented x 3 Consciousness 2- Awake and alert oriented x 3 O2 Saturation 2- Able to maintain O2 satruation of 92% on room air O2 Saturation 2- Able to maintain O2 satruation of 92% on room air Respiratory 2- Able to deep breathe and cough well Respiratory 2- Able to deep breathe and cough well Total Score 10 Total Score 10 Contrast Agent: Isovue Diagnostic Contrast: 114 ml Total Contrast: 114 ml Fluoro Dose: 388 mGy Activated Clotting Time Time Seconds to Clot 02:53 PM 118 Procedure Log Time Note Enter By 02:28 PM CathStat 02:35 PM Vitals capture started with the following parameters, Patient=Adult, Interval=5 min, Initial Budrxems=196 mmHg, Deflation Rate=3 mmHg, Cuff placed on Right Arm 02:37 PM HR=81 bpm, NPIT=965/66 mmhg, SpO2=97.0 %, Resp=18 B/min 02:39 PM Pt arrived to [address] at 14:39 02:39 PM Marciano Reyes RT (R) Position: Scrub Time in: 14:39 02:39 PM Oanh Finch RT (R) Position: Monitor Time in: 14:39 02:39 PM Belinda Dean RN Position: Turpentiner Time in: 14:39 02:39 PM Patient charges- Angio tray pack, Navilyst 3mm J, Pulse Oximetry and ACIST tubing and transducer 02:40 PM Case Start 02:40 PM Case Delayed No, inpatient :40 PM Hair removed from procedure site in procedure lab using clippers. Bilateral groin prepped with Chloraprep by Oanh Finch RT (R), then patient was draped. Skin intact. :40 PM Physician arrived 14:40 :40 PM Meet and greet completed :40 PM Sign in performed according to hospital policy. 02:40 PM Procedure start 14:40 :40 PM Time: 14:40 Oxygen on at 2 L/min per nasal cannula by Belinda Dean RN :40 PM Time: 14:40 Versed 1 mg Intravenous Given by Belinda Dean RN :40 PM Time: 14:40 Fentanyl 50 mcg Intravenous Given by Belinda Dean RN :40 PM Time: 14:40 Patient comfortable and pain free: Yes 41 PM Time: 14:41LOC: 5 = Fully awake and oriented or at pre-proc level :41 PM HR=93 bpm, ZKKR=898/66 mmhg, SpO2=96.0 %, Resp=22 B/min, Comment=Sinus 02:43 PM ASA Class CLASS II- Mild systemic disease (i.e. well-controlled diabetes, hypertension, asthma, cigarette smoking) 02:44 PM Pressure channel 1 zeroed. 02:45 PM Clinical Presentation: Non-STEMI 02:45 PM Time out performed according to hospital policy 02:46 PM HR=75 bpm, NIBP=85/54 mmhg, SpO2=97.0 %, Resp=9 B/min, Comment=Sinus 02:46 PM Time: 14:46 Versed 0.5 mg Intravenous Given by Belinda Dean RN dspell 02:46 PM Time: 14:46 Fentanyl 25 mcg Intravenous Given by Belinda Dean RN [facility] 02:46 PM NIBP STAT measurement started. 02:47 PM HR=79 bpm, NIBP=90/55 mmhg, SpO2=97.0 %, Resp=16 B/min, Comment=Sinus 02:47 PM Time: 14:47 10 ml Lidocaine 2% to right groin Subcutaneous Given by Quintin Gurrola MD, [facility] dspell 02:47 PM Micro-Introducer Kit utilized for sheath placement dspell 02:48 PM Access obtained by percutaneous puncture. 6Fr 10cm Terumo [facility] sheath placed in right Femoral artery. [id number] dspell 02:48 PM contrast injected, image obtained of the right groin dspell 02:49 PM 5Fr FR 4 catheter inserted over the wire [facility] dspell 02:49 PM 0.035 145cm Navilyst 3mmJ wire [id number] dspell 02:49 PM RCA angiography performed in multiple views. dspell 02:49 PM Recorded Pressure: Ao, HR=77, Condition=Condition 1 (Aorta) Ao 104/62/80 02:49 PM Recorded Pressure: Ao, HR=71, Condition=Condition 1 (Aorta) Ao 105/56/78 02:50 PM Catheter removed dspell 02:50 PM 5Fr FL 4 catheter inserted over the wire [facility] dspell 02:50 PM LCA angiography performed in multiple views. dspell 02:51 PM HR=81 bpm, NIBP=84/59 mmhg, SpO2=96.0 %, Resp=15 B/min, Comment=Sinus 02:51 PM ACT drawn dspell 02:52 PM Recorded Pressure: Ao, HR=82, Condition=Condition 1 (Aorta) Ao 105/60/79 02:53 PM At 14:53 the ACT was 118 seconds. dspell 02:53 PM Recorded Pressure: Ao, HR=81, Condition=Condition 1 (Aorta) Ao 96/63/78 02:53 PM Catheter removed dspellman 02:54 PM Coronary Dominance: Left dspellman 02:54 PM 5Fr Pigtail catheter inserted over the wire DNC dspellman 02:54 PM Catheter selectively placed in left ventricle dspellman 02:55 PM Recorded Pressure: LV, HR=83, Condition=Condition 1 (Left Ventricle) LV 115/12/15 02:55 PM Recorded Pressure: LV, Ao, HR=84, Condition=Condition 1 (Left Ventricle) LV 116/13/14, (Aorta) Ao 110/60/82 02:56 PM HR=82 bpm, NIBP=81/53 mmhg, SpO2=96.0 %, Resp=18 B/min 02:57 PM Time: 14:41LOC: 4 = Oriented but drowsy dspellman 02:57 PM Time: 14:40 Patient comfortable and pain free: Yes dspell 02:57 PM Pressures recorded dspell 02:58 PM Catheter removed dspell 02:59 PM Lesion found in Mid LAD. Pre Stenosis: 60 Pre PATRICK Flow: 3: Complete and Brisk Flow/Perfusion dspellman 03:01 PM HR=83 bpm, NIBP=70/50 mmhg, SpO2=97.0 %, Resp=16 B/min, Comment=Sinus 03:05 PM Pressure channel 3 zeroed. 03:06 PM HR=80 bpm, NIBP=83/57 mmhg, SpO2=97.0 %, Resp=17 B/min, Comment=Sinus 03:07 PM Pressure channel 3 equalized to channel 1. 03:10 PM FFR: Condition=Condition 1, Device=VOLCANO PRIME WIRE 03:10 PM Recorded Pressure: Ao, PV1, HR=80, Condition=Condition 1 (Aorta) Ao ?/?/?, (Portal Vein) PV1 ?/?/? 03:11 PM HR=79 bpm, NIBP=82/56 mmhg, SpO2=97 %, Resp=15 B/min 03:12 PM Time: 14:57 Patient comfortable and pain free: Yes dspellman 03:12 PM Time: 14:57LOC: 4 = Oriented but drowsy dspellman 03:13 PM Pressure channel 3 equalized to channel 1. 03:13 PM Time: 15:13 Heparin 2000 units Intravenous Given by Belinda Dean RN dspell 03:14 PM PCI lesion in Mid LAD. dspellman 03:14 PM 6Fr XB LAD 3.5 Cordis guide catheter was used to cannulate the PCI vessel successfully. reused? No dspell 03:14 PM Inflation device was opened. dspell 03:14 PM FFR: Value=0.84, Condition=Condition 1, Device=VOLCANO PRIME WIRE 03:14 PM Recorded Pressure: Ao, PV1, FFR=0.84, HR=78, Condition=Condition 1 (Aorta) Ao 116/62/85, (Portal Vein) PV1 104/107/73 03:15 PM [employer] FFR Wire advanced to target lesion. dspell 03:15 PM Time: 15:15 Adenosine 520.8 ml/hr administered Intracoronary by Quintin Gurrola MD, FACC dspell 03:17 PM FFR Measurement: 0.84 dspell 03:17 PM Flow Wire/Catheter removed intact dspell 03:17 PM HR=88 bpm, NIBP=98/56 mmhg, SpO2=98 %, Resp=19 B/min 03:17 PM Procedure completed at 15:17 dspellman 03:18 PM Sign out completed: Radiation Dose 388.33 mGy Fluoro Time: 8.0 Isovue 370 - 200ml contrast 114 ml given by Quintin Gurrola MD, FACC. Complications: NoneCardiac Rehab Consult needed: NoConfirmed administered medications: Yes 03:19 PM Arterial sheath pulled, Angio-seal closure device used and was Successful [id number] S/N. dspell 03:19 PM Estimated Blood Loss: minimal dspell 03:19 PM Post ECG NSR dspell 03:19 PM Post Blood Pressure 98/56 dspellman 03:21 PM HR=80 bpm, NIBP=93/63 mmhg, SpO2=97.0 %, Resp=15 B/min, Comment=Sinus 03:22 PM Information taught Cardiac Cath and Angioseal dspell 03:22 PM Education needs Procedure, Plan of Care, and Responsibilities of Patient in Care dspell 03:22 PM Learning barriers :None dspell 03:22 PM Education Methods Verbal dspell 03:22 PM Education evaluation Able to repeat information dspell 03:23 PM Site status No bleeding/hematoma - Rt Groin as reported by Marciano Reyes RT (R) at 15:22 dspellman 03:23 PM Opsite applied dspell 03:27 PM Time: 15:12 Patient comfortable and pain free: Yes [facility] 03:27 PM Time: 15:12LOC: 4 = Oriented but drowsy dspell 03:28 PM Report given to Silvia BANDA Pt taken to 3B Room #36. 15:28 dspell 03:28 PM Patient out of room: 15:28 dspell 03:28 PM Family placed in No family available. dspell 03:29 PM Complications: None [facility] 03:29 PM Fluoro Time: 8 dspell 03:30 PM Isovue 370 - 200ml contrast [address] Craig. dspell 03:30 PM Radiation Dose 388.33 mGy [facility] Complications Complication None None Hemodynamics Pressures Site Systolic/A Wave Diastolic/V Wave Mean AO 104 62 80 AO 105 56 78 AO 105 60 79 AO 96 63 78 LV 115 12 15 LV 116 13 14 AO 110 60 82 AO PV1 AO 116 62 85 PV1 104 107 73 Post Procedure Information Blood Pressure: 98/56 mmHg Rhythm: NSR Post procedural instructions were given Closure Device Time Device Success/Fail 08/30/2017 3:30:00 PM Angio-Seal VIP Successful Site Checks Time Location Status Staff Sheath In? Note 03:22 PM Rt Groin No bleeding/hematoma Marciano Reyes RT (R) Pulses Time Site Pre-Procedure Post-Procedure Note 08/30/2017 1:23:00 PM Bilateral DP & PT 3+ 08/30/2017 1:23:00 PM Bilateral radial 3+ Updated by Oanh Finch RT (R) on 08/30/2017 3:35:16 PM Oanh Finch RT electronically signed on 08/30/2017 3:36:38 PM with status of Final
--- NOTE | 2017-08-30 15:48 | Invasive Diagnostic Lab Proc ---
Name: Odalys Marshall Date of Study: 08/30/2017 Date: 1955 Ht: 66.1in Medical Record#: [id number] Age: 62 Wt: 136.69lb Gender: Female BSA: 1.7 Order #: [id number] BMI: 21.97 Physicians Procedure Physician: dJ Craig MD Referring MD: Referring MD: Staff Name Position Time In Marciano Reyes RT (R) Scrub 02:39 PM Oanh Finch RT (R) Monitor 02:39 PM Belinda Dean RN Dough Machine Operator 02:39 PM Indications Indication Non-Stemi Cardiomyopathy Procedures Performed Procedure L HRT ARTERY/VENTRICLE ANGIO IV Doppler BLD Flow 1st Vessel Pre-Procedure Checklist Informed consent is complete signed and on chart. H&P is on chart. ID band is on and ID verified with patient. Patient NPO for procedure The procedure was described for the patient and questions were answered. Blood Pressure: 92/62 ECG is on chart. Plan of Care Patient will tolerate the procedure without complications. Adequate level of comfort will be maintained. Hemodynamics will remain stable Patient will recover from procedure without complications. Respiratory function will be maintained. Cardiac rhythm will remain stable. Patient temperature will be maintained. Patient and/or family have verbalized understanding of the procedure. Patient Education Chief Complaint/Reason for Test: Cardiac Cath Developmental Category: Adult (18-64 years) Developmentally Appropriate for Age: Yes Learning Barriers: None Education Needs: Procedure Education Method: Verbal Information Taught: Cardiac Cath Educational Evaluation: Able to repeat information Intravenous Access Time IV Size Location DC'd Fluid/Drip Rate Units RN 01:23 PM 20g 1 1/4" Patent On Arrival Rt Arm 20g 1 1/4" Patent On Arrival Rt Antecubital Allergies No Known Allergies Vital Signs Time BP (mmHg) HR (bpm) O2 Sat. RR (bpm) LOC 01:23 PM 92 / 62 89 9 % 18 5 = Fully awake and oriented or at pre-proc level 02:41 PM / % 5 = Fully awake and oriented or at pre-proc level 02:41 PM / % 4 = Oriented but drowsy 02:57 PM / % 4 = Oriented but drowsy 03:12 PM / % 4 = Oriented but drowsy 02:37 PM 122 / 66 81 97 % 18 02:41 PM 105 / 66 93 96 % 22 02:46 PM 85 / 54 75 97 % 9 02:47 PM 90 / 55 79 97 % 16 02:51 PM 84 / 59 81 96 % 15 02:56 PM 81 / 53 82 96 % 18 03:01 PM 70 / 50 83 97 % 16 03:06 PM 83 / 57 80 97 % 17 03:11 PM 82 / 56 79 97 % 15 03:17 PM 98 / 56 88 98 % 19 03:21 PM 93 / 63 80 97 % 15 Procedural Medications Time Medication Dose Units Method Given By 02:40 PM Oxygen 2 L/min nasal cannula Belinda Dean RN 02:40 PM Versed 1 mg Intravenous Belinda Dean RN 02:40 PM Fentanyl 50 mcg Intravenous Belinda Dean RN 02:46 PM Versed 0.5 mg Intravenous Belinda Dean RN 02:46 PM Fentanyl 25 mcg Intravenous Belinda Dean RN 02:47 PM Lidocaine 2% 10 ml Subcutaneous MoussaEstefani MD 03:15 PM Adenosine 520.8 ml/hr Intracoronary Belinda Dean RN 03:20 PM Heparin 2000 units Intravenous Belinda Dean RN ASA Classification: CLASS II- Mild systemic disease (i.e. well-controlled diabetes, hypertension, asthma, cigarette smoking) Hua Score Preprocedure Postprocedure Activity 2- Moves 4 extremities sustained head lift Activity 2- Moves 4 extremities sustained head lift Circulation 2- SBP +/= 20 points of pre-anesthetic level Circulation 2- SBP +/= 20 points of pre-anesthetic level Consciousness 2- Awake and alert oriented x 3 Consciousness 2- Awake and alert oriented x 3 O2 Saturation 2- Able to maintain O2 satruation of 92% on room air O2 Saturation 2- Able to maintain O2 satruation of 92% on room air Respiratory 2- Able to deep breathe and cough well Respiratory 2- Able to deep breathe and cough well Total Score 10 Total Score 10 Contrast Agent: Isovue Diagnostic Contrast: 114 ml Total Contrast: 114 ml Fluoro Dose: 388 mGy Activated Clotting Time Time Seconds to Clot 02:53 PM 118 Procedure Log Time Note Enter By 02:28 PM CathStat 02:35 PM Vitals capture started with the following parameters, Patient=Adult, Interval=5 min, Initial Wxfuloob=158 mmHg, Deflation Rate=3 mmHg, Cuff placed on Right Arm 02:37 PM HR=81 bpm, ETIK=253/66 mmhg, SpO2=97.0 %, Resp=18 B/min 02:39 PM Pt arrived to medical lab scientist 1 at 14:39 02:39 PM Marciano Reyes RT (R) Position: Scrub Time in: 14:39 02:39 PM Oanh Finch RT (R) Position: Monitor Time in: 14:39 02:39 PM Belinda Dean RN Position: Dough Machine Operator Time in: 14:39 02:39 PM Patient charges- Angio tray pack, Navilyst 3mm J, Pulse Oximetry and ACIST tubing and transducer 02:40 PM Case Start 02:40 PM Case Delayed No, inpatient :40 PM Hair removed from procedure site in procedure lab using clippers. Bilateral groin prepped with Chloraprep by Oanh Finch RT (R), then patient was draped. Skin intact. :40 PM Physician arrived 14:40 :40 PM Meet and greet completed :40 PM Sign in performed according to hospital policy. 02:40 PM Procedure start 14:40 :40 PM Time: 14:40 Oxygen on at 2 L/min per nasal cannula by Belinda Dean RN :40 PM Time: 14:40 Versed 1 mg Intravenous Given by Belinda Dean RN :40 PM Time: 14:40 Fentanyl 50 mcg Intravenous Given by Belinda Dean RN :40 PM Time: 14:40 Patient comfortable and pain free: Yes 41 PM Time: 14:41LOC: 5 = Fully awake and oriented or at pre-proc level :41 PM HR=93 bpm, ZALN=115/66 mmhg, SpO2=96.0 %, Resp=22 B/min, Comment=Sinus 02:43 PM ASA Class CLASS II- Mild systemic disease (i.e. well-controlled diabetes, hypertension, asthma, cigarette smoking) 02:44 PM Pressure channel 1 zeroed. 02:45 PM Clinical Presentation: Non-STEMI 02:45 PM Time out performed according to hospital policy 02:46 PM HR=75 bpm, NIBP=85/54 mmhg, SpO2=97.0 %, Resp=9 B/min, Comment=Sinus 02:46 PM Time: 14:46 Versed 0.5 mg Intravenous Given by Belinda Dean RN 02:46 PM Time: 14:46 Fentanyl 25 mcg Intravenous Given by Belinda Dean RN [facility] 02:46 PM NIBP STAT measurement started. 02:47 PM HR=79 bpm, NIBP=90/55 mmhg, SpO2=97.0 %, Resp=16 B/min, Comment=Sinus 02:47 PM Time: 14:47 10 ml Lidocaine 2% to right groin Subcutaneous Given by Jd Craig MD 02:47 PM Micro-Introducer Kit utilized for sheath placement dspell 02:48 PM Access obtained by percutaneous puncture. 6Fr 10cm Terumo [place] sheath placed in right Femoral artery. [id number] dspell 02:48 PM contrast injected, image obtained of the right groin dspell 02:49 PM 5Fr FR 4 catheter inserted over the wire [facility] dspell 02:49 PM 0.035 145cm Navilyst 3mmJ wire [id number] dspell 02:49 PM RCA angiography performed in multiple views. dspell 02:49 PM Recorded Pressure: Ao, HR=77, Condition=Condition 1 (Aorta) Ao 104/62/80 02:49 PM Recorded Pressure: Ao, HR=71, Condition=Condition 1 (Aorta) Ao 105/56/78 02:50 PM Catheter removed dspell 02:50 PM 5Fr FL 4 catheter inserted over the wire [facility] dspell 02:50 PM LCA angiography performed in multiple views. dspell 02:51 PM HR=81 bpm, NIBP=84/59 mmhg, SpO2=96.0 %, Resp=15 B/min, Comment=Sinus 02:51 PM ACT drawn dspell 02:52 PM Recorded Pressure: Ao, HR=82, Condition=Condition 1 (Aorta) Ao 105/60/79 02:53 PM At 14:53 the ACT was 118 seconds. dspell 02:53 PM Recorded Pressure: Ao, HR=81, Condition=Condition 1 (Aorta) Ao 96/63/78 02:53 PM Catheter removed dspellman 02:54 PM Coronary Dominance: Left dspellman 02:54 PM 5Fr Pigtail catheter inserted over the wire DNC dspellman 02:54 PM Catheter selectively placed in left ventricle dspellman 02:55 PM Recorded Pressure: LV, HR=83, Condition=Condition 1 (Left Ventricle) LV 115/12/15 02:55 PM Recorded Pressure: LV, Ao, HR=84, Condition=Condition 1 (Left Ventricle) LV 116/13/14, (Aorta) Ao 110/60/82 02:56 PM HR=82 bpm, NIBP=81/53 mmhg, SpO2=96.0 %, Resp=18 B/min 02:57 PM Time: 14:41LOC: 4 = Oriented but drowsy dspellman 02:57 PM Time: 14:40 Patient comfortable and pain free: Yes dspell 02:57 PM Pressures recorded dspell 02:58 PM Catheter removed dspell 02:59 PM Lesion found in Mid LAD. Pre Stenosis: 60 Pre PATRICK Flow: 3: Complete and Brisk Flow/Perfusion dspellman 03:01 PM HR=83 bpm, NIBP=70/50 mmhg, SpO2=97.0 %, Resp=16 B/min, Comment=Sinus 03:05 PM Pressure channel 3 zeroed. 03:06 PM HR=80 bpm, NIBP=83/57 mmhg, SpO2=97.0 %, Resp=17 B/min, Comment=Sinus 03:07 PM Pressure channel 3 equalized to channel 1. 03:10 PM FFR: Condition=Condition 1, Device=VOLCANO PRIME WIRE 03:10 PM Recorded Pressure: Ao, PV1, HR=80, Condition=Condition 1 (Aorta) Ao ?/?/?, (Portal Vein) PV1 ?/?/? 03:11 PM HR=79 bpm, NIBP=82/56 mmhg, SpO2=97 %, Resp=15 B/min 03:12 PM Time: 14:57 Patient comfortable and pain free: Yes dspellman 03:12 PM Time: 14:57LOC: 4 = Oriented but drowsy dspellman 03:13 PM Pressure channel 3 equalized to channel 1. 03:13 PM Time: 15:13 Heparin 2000 units Intravenous Given by Belinda Dean RN dspell 03:14 PM PCI lesion in Mid LAD. dspellman 03:14 PM 6Fr XB LAD 3.5 Cordis guide catheter was used to cannulate the PCI vessel successfully. reused? No dspell 03:14 PM Inflation device was opened. dspell 03:14 PM FFR: Value=0.84, Condition=Condition 1, Device=VOLCANO PRIME WIRE 03:14 PM Recorded Pressure: Ao, PV1, FFR=0.84, HR=78, Condition=Condition 1 (Aorta) Ao 116/62/85, (Portal Vein) PV1 104/107/73 03:15 PM [employer] FFR Wire advanced to target lesion. dsp 03:15 PM Time: 15:15 Adenosine 520.8 ml/hr administered Intravenous by Jd Craig MD dspell:17 PM FFR Measurement: 0.84 dspell:17 PM Flow Wire/Catheter removed intact dspell:17 PM HR=88 bpm, NIBP=98/56 mmhg, SpO2=98 %, Resp=19 B/min 03:17 PM Procedure completed at 15:17 dspellman 03:18 PM Sign out completed: Radiation Dose 388.33 mGy Fluoro Time: 8.0 Isovue 370 - 200ml contrast 114 ml given by Quintin Gurrola MD, [facility]. Complications: NoneCardiac Rehab Consult needed: NoConfirmed administered medications: Yes :19 PM Arterial sheath pulled, Angio-seal closure device used and was Successful [id number] S/N. 03:19 PM Estimated Blood Loss: minimal dspell:19 PM Post ECG NSR dspell 03:19 PM Post Blood Pressure 98/56 dspell 03:21 PM HR=80 bpm, NIBP=93/63 mmhg, SpO2=97.0 %, Resp=15 B/min, Comment=Sinus 03:22 PM Information taught Cardiac Cath and Angioseal dspell 03:22 PM Education needs Procedure, Plan of Care, and Responsibilities of Patient in Care dspell 03:22 PM Learning barriers :None dspell 03:22 PM Education Methods Verbal dspell 03:22 PM Education evaluation Able to repeat information dspell 03:23 PM Site status No bleeding/hematoma - Rt Groin as reported by Marciano Reyes RT (R) at 15:22 dspell:23 PM Opsite applied dspell 03:27 PM Time: 15:12 Patient comfortable and pain free: Yes [facility] 03:27 PM Time: 15:12LOC: 4 = Oriented but drowsy [facility] 03:28 PM Report given to Silvia BANDA Pt taken to 3B Room #36. 15:28 dspell 03:28 PM Patient out of room: 15:28 [facility] 03:28 PM Family placed in No family available. dspell 03:29 PM Complications: None [facility] 03:29 PM Fluoro Time: 8 [facility] 03:30 PM Isovue 370 - 200ml contrast [address] Craig. dsp 03:30 PM Radiation Dose 388.33 mGy [facility] Complications Complication None None Hemodynamics Pressures Site Systolic/A Wave Diastolic/V Wave Mean AO 104 62 80 AO 105 56 78 AO 105 60 79 AO 96 63 78 LV 115 12 15 LV 116 13 14 AO 110 60 82 AO PV1 AO 116 62 85 PV1 104 107 73 Post Procedure Information Blood Pressure: 98/56 mmHg Rhythm: NSR Post procedural instructions were given Closure Device Time Device Success/Fail 08/30/2017 3:30:00 PM Angio-Seal VIP Successful Site Checks Time Location Status Staff Sheath In? Note 03:22 PM Rt Groin No bleeding/hematoma Marciano Reyes RT (R) Pulses Time Site Pre-Procedure Post-Procedure Note 08/30/2017 1:23:00 PM Bilateral DP & PT 3+ 08/30/2017 1:23:00 PM Bilateral radial 3+ Updated by Oanh Finch RT (R) on 08/30/2017 3:41:13 PM Oanh Finch RT electronically signed on 08/30/2017 3:42:16 PM with status of Final
[2017-08-30] MEDS: traZODone 50 MG TABLET PO SCH (21:36)
[2017-08-31] MEDS: Levofloxacin 750 MG/150 ML 750 MG/150 ML BAG IVPB SCH (02:09)
[2017-08-31] MEDS: Ipratropium/Albuterol Neb 3 ML IH SCH ×3 (03:50→11:51)
[2017-08-31 04:58] LABS: Hematocrit 36.1 % (35.3-44.9); Mean Corpuscular HGB Conc 32.7 g/dL (31.6-35.5); Mean Corpuscular Hemoglobin 30.1 pg (28.0-33.3); Mean Corpuscular Volume 92.1 fL (83.0-100.0); Platelet Count 191 K/mcL (140-400); Red Blood Count 3.92 M/mcL (3.82-4.97); Red Cell Distribution Width 13.3 % (11.5-14.5)
[2017-08-31 05:06] LABS: Hemoglobin 11.8 g/dL (11.5-15.4)
[2017-08-31 05:19] LABS: BUN/Creatinine Ratio 18 (6-26); Blood Urea Nitrogen 14 mg/dL (8-23); Calcium 8.8 mg/dL (8.6-10.3); Carbon Dioxide 25 mEq/L (23-29); Chloride 110 mEq/L (98-107); Glucose 85 mg/dL (70-105); Osmolality,Calculated 286 (280-300); Potassium 4.1 mEq/L (3.5-5.1); Sodium 138 mEq/L (136-145); eGFR For African Americans > 60 (> 60); eGFR For Non-African Americans > 60 (> 60)
--- NOTE | 2017-08-31 09:30 | Cardiology Progress Note ---
Date of Encounter: 08/31/17 Time of Encounter: 09:00 Assessment and Plan (1) Community acquired pneumonia Current Visit: Yes Status: Deleted Per cardiology: -Admitted with increased shortness of breath. -Diagnosis with pneumonia. -On IV ATB. -Sputum positive for strep pneumonia. -Management per primary service. Qualifiers: Laterality: unspecified laterality Qualified Code(s): J18.9 - Pneumonia, unspecified organism (2) Elevated troponin Current Visit: Yes Status: Acute Per cardiology: -Troponins 0.24, 0.53, 0.85, 0.78 in the setting of pneumonia, sepsis. -Denies chest pain. -ECG abnormal, unknown baseline. -On asa, statin, -C with unofficial report with 60% LAD lesion with FFR negative, not functionally significant. -Do not suspect NSTEMI, suspect troponins demand ishemia. No cardiac rehab consult warranted. (3) Non-ischemic cardiomyopathy Current Visit: Yes Status: Acute Per cardiology: -TTE with LVEF 30-35%. New cardiomyopathy. -LHC without intervention. -Euvolemic on exam. -Not on BB or telma due to hypotension. -Consider addition of toprol 12.5mg daily if BP will allow prior to discharge. Can consider addition of telma in outpatient setting. -Recommend repeat TTE in 3 months. -CHF education reveiwed with patient. -Cardiology will sign off and will follow in outpatient setting ( of note, pateint is visiting in [place] for another month and then will be returning to [place]. [facility] will follow while in [place]). Recommend patient obtain box packer [facility] upon patient returning home. (4) Tobacco abuse Current Visit: Yes Status: Chronic Per cardiology: -States smoking 1pack per day since she was 13. -Smoking cessation education provided. Discussion w patient/family: The assessment and plan as outlined above was discussed with the patient who expressed understanding and agreement. All questions were answered. Thank you for involving us in the care of your patient. Please call with any questions. Discussed and reviewed with . Subjective Principal diagnosis: Pneumonia Interval history: Patient denies chest pain. Reports she feels better today. Objective Vital Signs, Last 4 Hours Temp Pulse Resp BP Pulse Ox 08/31/17 07:58 16 93 08/31/17 07:00 97.8 F 88 16 112/65 95 General: Conversant, No Apparent Distress HEENT: Atraumatic, Normocephaly, Mucus Membranes Moist Neck: No JVD, Normal carotid pulses Cardiac: Reg Rate and Rhythm, Normal S1 and S2, No Murmur Lungs: Other (Lung sounds coarse. ) Neuro: Alert and responsive, No focal deficits noted Abdomen: Soft, Non-Tender Skin: No rashes noted on visualized skin Musculoskeletal: No Chest Wall Tenderness Extremities: No Clubbing, No Cyanosis, No Edema, Normal Pulses Results 08/31/17 04:36 08/31/17 04:36 Lab Results Active Medications Acetaminophen (Tylenol) 650 mg PO Q6HR PRN PRN Reason: Fever Stop: 02/28/18 18:27 Last Admin: 08/30/17 13:46 Dose: 650 mg Albuterol/Ipratropium (Duoneb) 3 ml IH [id number] BRITNEY PRN Reason: Protocol Stop: 02/28/18 04:01 Last Admin: 08/31/17 07:58 Dose: 3 ml Aspirin (Aspirin Ec) 81 mg PO DAILY BRITNEY Stop: 03/01/18 09:01 Last Admin: 08/30/17 08:58 Dose: 81 mg Atorvastatin Calcium (Lipitor) 40 mg PO HS BRITNEY Stop: 02/28/18 21:01 Last Admin: 08/30/17 21:36 Dose: 40 mg Fluoxetine HCl (Prozac) 80 mg PO DAILY BRITNEY PRN Reason: Protocol Stop: 02/28/18 14:01 Last Admin: 08/30/17 08:58 Dose: 80 mg Heparin Sodium (Porcine) (Heparin) 3,700 unit 60 unit/kg (3700 unit) IVP Q6HR PRN PRN Reason: SEE COMMENTS Stop: 03/01/18 01:35 Heparin Sodium (Porcine) (Heparin) 1,800 unit 30 unit/kg (1800 unit) IVP Q6H PRN PRN Reason: SEE COMMENTS Stop: 03/01/18 01:35 Last Admin: 08/30/17 02:24 Dose: 1,800 unit Levofloxacin/Dextrose (Levaquin Premix 750mg/150 Ml) 750 mg in 150 mls @ 100 mls/hr IVPB Q24H BRITNEY PRN Reason: Protocol Stop: 02/28/18 03:01 Last Infusion: 08/31/17 03:43 Dose: Infused Levothyroxine Sodium (Synthroid) 100 mcg PO 0630 BRITNEY Stop: 03/01/18 06:31 Last Admin: 08/31/17 05:56 Dose: 100 mcg Naloxone HCl (Narcan) 0.4 mg IVP Q2MIN PRN PRN Reason: SEE COMMENTS Stop: 02/28/18 02:51 Omeprazole (Prilosec) 20 mg PO DAILY BRITNEY PRN Reason: Protocol Stop: 03/01/18 09:01 Last Admin: 08/30/17 08:58 Dose: 20 mg Pregabalin (Lyrica) 150 mg PO BID BRITNEY Stop: 02/28/18 21:01 Last Admin: 08/30/17 21:36 Dose: 150 mg Trazodone HCl (Trazodone) 150 mg PO HS BRITNEY Stop: 02/28/18 21:01 Last Admin: 08/30/17 21:36 Dose: 150 mg Laboratory Tests 08/31/17 08/31/17 04:36 04:36 Hgb 11.8 D Creatinine 0.79 - Imaging and Cardiology Chest Xray: report reviewed Echo: report reviewed Cardiac cath: report reviewed - EKG Interpretation EKG results cardiology: other (Telemetry reviewed with average HR previous 12 hours noted to be 83, SR.) Consult Discharge Plan - Plan Referrals: NONE,PCP [Primary Care Provider] -
[2017-08-31] MEDS: Aspirin Enteric Coated 81 MG Tablet PO SCH (10:21)
[2017-08-31] MEDS: FLUoxetine 20 MG CAPSULE PO SCH (10:21)
[2017-08-31] MEDS: Pregabalin 75 MG CAPSULE PO SCH (10:21)
[2017-08-31 11:26] VITALS: BP 92/66
--- NOTE | 2017-08-31 11:45 | Discharge Summary ---
Orders not resulted at time of discharge: Pending orders 08/30/17 10:30 CL Cardiac Catheterization [CL] Routine 09/01/17 04:00 BMP [Basic Metabolic Panel] AM 0400 Complete Blood Count w/o Diff [HEME] AM 0400 09/02/17 04:00 BMP [Basic Metabolic Panel] AM 0400 Complete Blood Count w/o Diff [HEME] AM 0400 09/03/17 04:00 BMP [Basic Metabolic Panel] AM 0400 Complete Blood Count w/o Diff [HEME] AM 0400 Date of Encounter: 08/31/17 Time of Encounter: 11:43 - Discharge Diagnosis (1) Non-ischemic cardiomyopathy Priority: Primary Status: Acute Assessment and Plan: 08/30/2017 TTE with EF 30-35%. New cardiomyopathy. Underwent LHC without intervention. Appeared euvolemic. Not on BB or telma due to hypotension. Evaluated by Cardiology who recommended repeat TTE in 3 months. CHF education reviewed with patient per Cardiology. Pateint lives in [place], she is visiting family in [place]. Plan to follow up with [facility] before she returns to [place]. She will need to establish care with cardiologists once returning home to [place]. Cont ASA (2) Elevated troponin Priority: Primary Status: Acute Assessment and Plan: troponin peaked at 0.85 and trended down; denied chest pain but with shortness of breath as noted below. EKG with RBBB. Continue heparin gtt, ASA, statin. Add BB if BP will allow (BP soft/borderline at this time). TTE with LVEF 30-35% , segmental LV systolic dysfunction. 08/30/17 LHC with 60% LAD lesion with FFR negative, not functionally significant. Evaluated by Cardiology who did not suspect NSTEMI but rather demand ishemia. Cont ASA, statin. No BB due to hypotension (3) Streptococcus pneumoniae pneumonia Priority: Primary Status: Acute Assessment and Plan: Bilateral airspace opacification noted on CT. Urinary antigen positive for strep pneumonia. Received 3 doses IV levaquin. Cont Levaquin at discharge; to complete a total course of 7 days Qualifiers: Laterality: bilateral Lung location: unspecified part of lung Qualified Code(s): J13 - Pneumonia due to Streptococcus pneumoniae (4) COPD (chronic obstructive pulmonary disease) Priority: Primary Status: Acute Assessment and Plan: Suspected with long history of tobacco use. Suspect acute exacerbation with wheezing and shortness of breath. Sx's improved with IV Levaquin, bronchodilators and steroids. Continue Levaquin as noted above at discharge. Discharge on steroid burst and albuterol INH as well. Smoking cessation advised. Qualifiers: COPD type: COPD with acute exacerbation Qualified Code(s): J44.1 - Chronic obstructive pulmonary disease with (acute) exacerbation (5) Tobacco abuse Priority: Primary Status: Chronic Assessment and Plan: current smoker. Cessation advised (6) Sepsis Priority: Primary Status: Suspected Assessment and Plan: with elevated WBC count, tachycardia and pneumonia. Lactic acid normal. Treated with IV fluids and IV ATB. BP remains on the hypotensive side however tachycardia resolved. Continue Levaquin, steroid burst and bronchodilators as noted above Qualifiers: Sepsis type: Pneumococcus Qualified Code(s): A40.3 - Sepsis due to Streptococcus pneumoniae (7) Hypokalemia Priority: Primary Status: Acute Assessment and Plan: resolved Hospital course: Please see assessment and plan for Hospital course Discharge discussed with: patient (Seen and examined at bedside. Says she feels better today and would like to go home. Still having some shortness of breath and cough but overall improved. Advised patient that she will need to follow-up with cardiology here at [facility] within one week and that she will need to follow-up with her PCP and establish care with a instrumentation and controls technician as soon as possible upon arriving back to [place]. Patient verbalized understanding. No chest pain.) - Time Spent with Patient Total time spent providing and/or coordinating discharge services: - Discharge Medications Prescriptions: Albuterol Sulfate [Albuterol Inhaler] 0 puff IH Q4HR PRN #1 hfa.[email or web address] PRN Reason: Shortness Of Breath/Wheezing Atorvastatin [Lipitor] 40 mg PO HS #30 tablet Levofloxacin [Levaquin] 750 mg PO DAILY #7 tablet predniSONE [PredniSONE] 40 mg PO DAILY 5 Days #10 tablet Home Medications: Aspirin Enteric Coated [Aspirin EC] 81 mg PO DAILY 08/29/17 [History] FLUoxetine HCl [Prozac] 80 mg PO DAILY 08/29/17 [History] Levothyroxine Sodium 100 mcg PO DAILY 08/29/17 [History] Multivitamin [One Daily Essential] 1 tab PO DAILY 08/29/17 [History] Omeprazole [PriLOSEC] 20 mg PO DAILY 08/29/17 [History] Pregabalin [Lyrica] 150 mg PO BID 08/29/17 [History] Trazodone HCl 150 mg PO HS 08/29/17 [History] Albuterol Sulfate [Albuterol Inhaler] 0 puff IH Q4HR PRN #1 hfa.aer.ad 08/31/17 [Rx] Atorvastatin [Lipitor] 40 mg PO HS #30 tablet 08/31/17 [Rx] Levofloxacin [Levaquin] 750 mg PO DAILY #7 tablet 08/31/17 [Rx] predniSONE [PredniSONE] 40 mg PO DAILY 5 Days #10 tablet 08/31/17 [Rx] Allergies/Adverse Reactions: 3 Allergy/AdvReac Type Severity Reaction Status Date / Time No Known Allergies Allergy Verified 08/29/17 08:53 Date of admission: 08/29/17 03:28 Primary care physician: PCP NONE Discharging clinician: Tessy Hanson Anticipated date of discharge: 08/31/17 - Constitutional Vitals: Temp Pulse Resp BP Pulse Ox 98.8 F 96 16 92/66 94 08/31/17 11:00 08/31/17 11:00 08/31/17 11:00 08/31/17 11:00 08/31/17 11:00 General appearance: Present: cooperative, A&O X 3, answers questions appropriately - Head Head exam: Present: atraumatic, normocephalic - Eye Eye exam: Present: PERRL, conjuntiva pink, sclera anicteric Pupils: Present: PERRL - Neck Neck exam general surgery: Present: supple, trachea midline. Absent: lymphadenopathy - Respiratory Respiratory exam: Present: CTAB, rhonchi, wheezes (Scattered rhonchi and wheezes but overall improved). Absent: accessory muscle use, rales - Cardiovascular Cardiovascular exam: Present: RRR, +S1, +S2. Absent: diastolic murmur, gallop, rubs, systolic murmur - GI/Abdominal GI/Abdominal exam: Present: normal bowel sounds, soft, no peritoneal signs. Absent: distended, tenderness - Extremities Exam Extremities exam: Present: warm, radial pulses palpable and symmetrical. Absent : calf tenderness, cyanotic, pedal edema - Neurological Exam Neurological exam: Present: CN II-XII intact, oriented X3, no focal deficits. Absent: pronater drift, facial droop, speech deficit - Skin Skin exam: Present: dry, intact - Patient Status Disposition: Home, Self-Care Condition: Good Functional capacity at discharge: independent ambulation Overall status at discharge: patient is progressing back to baseline - Discharge Instructions Instructions: Heart Failure (DC), Community-acquired Pneumonia (DC), Levofloxacin (By mouth), Prednisone (By mouth), Albuterol (By breathing), Chronic Obstructive Pulmonary Disease (DC), How to Stop Smoking (DC) Follow Up With: NONE,PCP [Primary Care Provider] - (Please follow-up with your primary care physician within one week of returning home. You will need to establish care with a instrumentation and controls technician as soon as possible) Dayanara Garrett, ACCOUNTING CONSULTANT [Advanced Practice Nurse] - (A follow-up with a has been arranged for you by office. Please call the office if you have not heard from them within one week) Forms: ED Satisfaction Letter - Diet and Activity Activity: increase activity as tolerated Diet: low fat, low cholesterol
--- NOTE | 2017-09-01 10:45 | Electrocardiograph Report ---
[address] [place], [place] [address] Test Date: 2017-08-28 Pat Name: Odalys Marshall Department: 104 Room: 3B Gender: F Direct Entry Midwife: : 1955 Requested By: [id number] Order Number: [id number] Reading MD: Santana Lakhani Measurements Intervals [place] Rate: 119 P: 81 [place]: 139 QRS: 256 QRSD: 137 T: 73 QT: 357 QTc: 427 Interpretive Statements SINUS TACHYCARDIA RIGHT ATRIAL ENLARGEMENT POSSIBLE LEFT ATRIAL ENLARGEMENT INDETERMINATE AXIS RIGHT BUNDLE BRANCH BLOCK LEFT POSTERIOR FASCICULAR BLOCK Electronically Signed On 09-01-2017 10:43:57 EDT by Santana Lakhani
== END 2017-08-31 14:40 | disposition home or self-care (01) | DRG 871 ==
LOC: EMEROO 23:08 → 3BNU 23:08
PROVIDERS: ADMIT Internal Medicine; ATTEND Internal Medicine